=== PATIENT | male | born 1950 | race African-American/Black ===

== ENCOUNTER 2024-01-07 12:13 | Inpatient (IN) | payer MEDICARE, OTHER ==
[~2024-01-07] VITALS: Ht 188 cm; Wt 67.1 kg
[2024-01-07] MEDS ORDERED: NETA2.5D3 EACHEYE (12:47)
[2024-01-07] MEDS ORDERED: HALO5TAB PO (12:47)
[2024-01-07] MEDS ORDERED: ACET325C7 PO (12:47)
[2024-01-07] MEDS ORDERED: MELO-105 PO (12:47)
[2024-01-07] MEDS ORDERED: LISI20TA30 PO (12:47)
[2024-01-07] MEDS ORDERED: ASPI81TA31 PO (12:47)
[2024-01-07] MEDS ORDERED: MAGN400O6 PO (12:47)
[2024-01-07] MEDS ORDERED: TEMA7.5C PO (12:47)
[2024-01-07] MEDS ORDERED: BENZ1TAB7 PO (12:47)
[2024-01-07] MEDS ORDERED: DORZ10DR13 EACHEYE (12:47)
[2024-01-07] MEDS ORDERED: MEMA10TA PO (12:47)
[2024-01-07] MEDS ORDERED: HYDR-4075 PO (12:47)
[2024-01-07] MEDS ORDERED: DOCU100C36 PO (12:47)
[2024-01-07] MEDS ORDERED: MAG30ORA PO (12:47)
[2024-01-07] MEDS ORDERED: CYCL30DR EACHEYE (12:47)
[2024-01-07] MEDS ORDERED: AMLO10TA4 PO (12:47)
[2024-01-07] MEDS ORDERED: BISA10SU61 RC (12:47)
[2024-01-07] MEDS ORDERED: CRAN400C PO (12:47)
[2024-01-07] MEDS ORDERED: NA P133E RC (12:47)
[2024-01-07 12:49] LABS: *BILIRUBIN,URIN NEGATIVE (NEGATIVE); *BLOOD, URINE NEGATIVE (NEGATIVE); *CLARITY,URINE CLEAR (CLEAR); *COLOR,URINE YELLOW (YELLOW); *KETONES,URINE NEGATIVE (NEGATIVE); *PROTEIN,URINE NEGATIVE (NEGATIVE); *UROBILINOGEN,URINE 0.2 E.U./dl (NORMAL); LEUKOCYTE ESTERASE ,URINE NEGATIVE (NEGATIVE); NITRITE, URINE NEGATIVE (NEGATIVE); UGLUCOSE NEGATIVE (NEGATIVE)
[2024-01-07 12:55] LABS: BASOPHILS % (AUTO) 0.6 % (0.0-2.0); EOSINOPHILS # (AUTO) 0.3 K/uL (0.0-0.7); EOSINOPHILS % (AUTO) 4.4 % (0.0-7.0); HEMATOCRIT 42.4 % (36.7-47.1); HEMOGLOBIN 13.6 g/dL (12.5-16.3); LYMPHOCYTES # (AUTO) 1.2 K/uL (0.8-4.8); LYMPHOCYTES % (AUTO) 19.6 % (20.5-51.5); MEAN CORPUSCULAR HGB CONC 32 g/dL (32.5-36.3); MEAN CORPUSCULAR VOLUME 84.3 fL (73.0-96.2); MONOCYTES # (AUTO) 0.2 K/uL (0.1-1.30); MONOCYTES % (AUTO) 3.1 % (0.0-11.0); NEUTROPHILS # (AUTO) 4.5 K/uL (1.8-8.9); NEUTROPHILS % (AUTO) 72.3 % (38.5-71.5); PLATELET COUNT (AUTO) 216 K/uL (152-348); RED BLOOD CELL COUNT(AUTO) 5.03 MIL/uL (4.06-5.63); RED CELL DISTRIBUTION WIDTH 14.7 % (12.1-16.2); WHITE BLOOD COUNT (AUTO) 6.3 K/uL (3.6-10.2)
[2024-01-07 12:56] LABS: *AMPHETAMINE, URINE NEGATIVE (NEGATIVE); *BARBITURATE, URINE NEGATIVE (NEGATIVE); *BENZODIAZEPINE, URINE NEGATIVE (NEGATIVE); *CANNABINOID, URINE NEGATIVE (NEGATIVE); *COCCAINE, URINE NEGATIVE (NEGATIVE); *OPIATE, URINE NEGATIVE (NEGATIVE); *PHENCYCLIDINE SCREEN,URINE NEGATIVE (NEGATIVE); FENTANYL, URINE NEGATIVE (NEGATIVE)
[2024-01-07 13:15] LABS: DIFFERENTIAL COMMENT 1
[2024-01-07 13:16] LABS: ETHANOL < 3 MG/DL (0-10)
[2024-01-07 13:19] LABS: CALCIUM 9.4 mg/dL (8.5-10.1); CARBON DIOXIDE 31 mmol/L (21-32); CHLORIDE 106 mmol/L (98-107); CREATININE 1.1 mg/dL (0.6-1.3); GLUCOSE 102 mg/dL (74-106); POTASSIUM 4.2 mmol/L (3.5-5.1); SODIUM SERUM 143 mmol/L (136-145); UREA NITROGEN, BLOOD 20 mg/dL (7-18)
[2024-01-07 13:31] LABS: ACETAMINOPHEN 4.2 ug/mL (10-30); ALANINE AMINOTRANSFERASE 18 U/L (16-63); ALBUMIN 3.6 g/dL (3.4-5.0); ASPARTATE AMINOTRANSFERASE 10 U/L (15-37); BILIRUBIN,DIRECT 0.1 mg/dL (0.0-0.2); BILIRUBIN,TOTAL 0.4 mg/dL (0.2-1.0); TOTAL PROTEIN, SERUM 7.1 g/dL (6.4-8.2)
[2024-01-07 13:51] LABS: ALKALINE PHOSPHATASE 62 U/L (50-136)
[2024-01-07] MEDS: OLANZAPINE 5 MG TABLET PO ONE (18:23)
[2024-01-07] MEDS ORDERED: OLANZAPINE 5 MG TABLET ONE (18:24)
[2024-01-07 19:53] VITALS: BP 142/53; TEMP 98.1; O2SAT 95
[2024-01-07] MEDS: BLOOD SUGAR DIAGNOSTIC 1 EACH STRIP VI ONE (20:00)
[2024-01-07] MEDS ORDERED: MAG HYDROX/AL HYDROX/SIMETH 30 ML LIQUID UDC PO PRN (20:00)
[2024-01-07] MEDS ORDERED: LORAZEPAM 0.5 MG TABLET PO PRN (20:00)
[2024-01-07] MEDS ORDERED: MAGNESIUM HYDROXIDE 30 ML LIQUID UDC PO PRN (20:00)
[2024-01-07] MEDS: TEMAZEPAM 7.5 MG CAPSULE PO PRN (21:51)
[2024-01-07] MEDS: ACETAMINOPHEN 325 MG TABLET PO PRN (21:51)
[2024-01-08 08:25] VITALS: BP 150/86; TEMP 98.2; O2SAT 98
[2024-01-08] MEDS ORDERED: Medication Not On Formulary EA (Acetaminophen (Tylenol) 650 MG) PO PRN (11:00)
[2024-01-08] MEDS ORDERED: MAG HYDROX/AL HYDROX/SIMETH 30 ML LIQUID UDC PO PRN (11:00)
[2024-01-08] MEDS ORDERED: MAGNESIUM HYDROXIDE 30 ML LIQUID UDC PO PRN (11:00)
[2024-01-08] MEDS ORDERED: BISACODYL 10 MG SUPP.RECT RC PRN (11:00)
[2024-01-08] MEDS: HALOPERIDOL 5 MG TABLET PO SCH (12:40)
[2024-01-08] MEDS ORDERED: HALOPERIDOL 1 MG TABLET PO SCH (13:00)
[2024-01-08 15:19] VITALS: BP 122/75; TEMP 98.4; O2SAT 96
[2024-01-08] MEDS: BENZTROPINE MESYLATE 1 MG TABLET PO SCH (16:51)
[2024-01-08] MEDS: DORZOLAMIDE/TIMOLOL OPHT DROP 10 ML BOTTLE EACHEYE SCH (16:52)
[2024-01-08] MEDS ORDERED: CRANBERRY PO SCH (17:00)
[2024-01-08] MEDS: DOCUSATE SODIUM 100 MG CAPSULE PO SCH (17:01)
[2024-01-08 20:00] VITALS: BP 120/70; TEMP 98.3; O2SAT 99
[2024-01-08] MEDS: OLANZAPINE 5 MG TABLET PO SCH (20:17)
[2024-01-08] MEDS: TEMAZEPAM 7.5 MG CAPSULE PO PRN (20:17)
[2024-01-09 08:17] VITALS: BP 148/89; TEMP 98; O2SAT 96
[2024-01-09] MEDS: LISINOPRIL 20 MG TABLET PO SCH (09:00)
[2024-01-09] MEDS: ASPIRIN 81 MG TAB.CHEW PO SCH (09:00)
[2024-01-09] MEDS: MELOXICAM 7.5 MG TABLET PO SCH (09:17)
[2024-01-09] MEDS: AMLODIPINE 10 MG TABLET PO SCH (09:17)
[2024-01-09] MEDS: LORAZEPAM 0.5 MG TABLET PO PRN (11:45)
[2024-01-09 15:35] VITALS: BP 130/79; TEMP 98; O2SAT 98
[2024-01-09 20:00] VITALS: BP 126/88; TEMP 98; O2SAT 98
[2024-01-10 08:10] VITALS: BP 136/71; TEMP 98; O2SAT 96
[2024-01-10 15:07] VITALS: BP 128/62; TEMP 98; O2SAT 96
[2024-01-10 20:00] VITALS: BP 105/54; TEMP 98; O2SAT 96
[2024-01-10] MEDS: OLANZAPINE 5 MG TABLET PO SCH (20:20)
[2024-01-11 07:53] VITALS: BP 131/69; TEMP 97.4; O2SAT 96
[2024-01-11 16:31] VITALS: BP 141/89; TEMP 97.9; O2SAT 97
[2024-01-11 20:00] VITALS: BP 139/65; TEMP 97.9; O2SAT 95
[2024-01-12 08:33] VITALS: BP 138/79; TEMP 98.2; O2SAT 97
[2024-01-12 16:28] VITALS: BP 124/53; TEMP 98.1; O2SAT 97
[2024-01-12 21:38] VITALS: BP 95/59; TEMP 98; O2SAT 98
[2024-01-13 08:38] VITALS: BP 121/64; TEMP 98.4; O2SAT 97
[2024-01-13 16:18] VITALS: BP 124/66; TEMP 98.3; O2SAT 97
[2024-01-13 19:49] VITALS: BP 126/60; TEMP 98.2; O2SAT 96
[2024-01-14 08:19] VITALS: BP 118/61; TEMP 98.2; O2SAT 96
[2024-01-14 14:24] VITALS: BP 104/57; TEMP 98; O2SAT 96
[2024-01-14 19:48] VITALS: BP 111/58; TEMP 97.8; O2SAT 95
[2024-01-15] MEDS: ENSURE ENLIVE (VAN) 240 ML LIQUID PO SCH (08:00)
[2024-01-15 08:05] VITALS: BP_SYST 138; BP_SYST 158; BP_DIAS 91; TEMP 98; O2SAT 96
[2024-01-15 16:41] VITALS: BP 104/56; TEMP 98; O2SAT 100
[2024-01-15 19:43] VITALS: BP 126/66; TEMP 98.1; O2SAT 98
[2024-01-16 07:15] LABS: BASOPHILS # (AUTO) 0.1 K/UL (0.0-0.2); BASOPHILS % (AUTO) 1.7 % (0.0-2.0); EOSINOPHILS # (AUTO) 0.4 K/uL (0.0-0.7); EOSINOPHILS % (AUTO) 7.6 % (0.0-7.0); HEMATOCRIT 41.3 % (36.7-47.1); HEMOGLOBIN 13.6 g/dL (12.5-16.3); LYMPHOCYTES % (AUTO) 36.9 % (20.5-51.5); MEAN CORPUSCULAR HEMOGLOBIN 27.6 uug (23.8-33.4); MEAN CORPUSCULAR HGB CONC 33 g/dL (32.5-36.3); MEAN CORPUSCULAR VOLUME 83.7 fL (73.0-96.2); MONOCYTES # (AUTO) 0.4 K/uL (0.1-1.30); MONOCYTES % (AUTO) 7.7 % (0.0-11.0); NEUTROPHILS # (AUTO) 2.5 K/uL (1.8-8.9); NEUTROPHILS % (AUTO) 46.1 % (38.5-71.5); PLATELET COUNT (AUTO) 188 K/uL (152-348); RED BLOOD CELL COUNT(AUTO) 4.93 MIL/uL (4.06-5.63); RED CELL DISTRIBUTION WIDTH 14.4 % (12.1-16.2); WHITE BLOOD COUNT (AUTO) 5.5 K/uL (3.6-10.2)
[2024-01-16 07:25] LABS: DIFFERENTIAL COMMENT 1
[2024-01-16 08:38] LABS: CALCIUM 9.4 mg/dL (8.5-10.1); CARBON DIOXIDE 31 mmol/L (21-32); CHLORIDE 107 mmol/L (98-107); CREATININE 1.2 mg/dL (0.6-1.3); GLUCOSE 86 mg/dL (74-106); POTASSIUM 4.2 mmol/L (3.5-5.1); SODIUM SERUM 141 mmol/L (136-145); UREA NITROGEN, BLOOD 23 mg/dL (7-18)
[2024-01-16 08:54] VITALS: BP 104/56; TEMP 98; O2SAT 98
[2024-01-16 09:01] VITALS: BP 169/81; TEMP 98; O2SAT 98
[2024-01-16 15:17] VITALS: BP 103/64; TEMP 98.2; O2SAT 98
[2024-01-16 20:00] VITALS: BP 114/64; TEMP 98.3; O2SAT 96
[2024-01-17 08:28] VITALS: BP 128/68; TEMP 98; O2SAT 98
[2024-01-17 15:12] VITALS: BP 104/65; TEMP 98; O2SAT 98
[2024-01-17 20:00] VITALS: BP 133/65; TEMP 97.7; O2SAT 96
[2024-01-18 08:26] VITALS: BP 125/75; TEMP 98; O2SAT 97
[2024-01-18 16:19] VITALS: BP 130/79; TEMP 98.1; O2SAT 97
[2024-01-18 20:25] VITALS: BP 164/80; TEMP 98; O2SAT 98
[2024-01-19 09:04] VITALS: BP 120/58; TEMP 98.3; O2SAT 97
[2024-01-19 16:36] VITALS: BP 96/56; TEMP 98; O2SAT 97
[2024-01-19 20:13] VITALS: BP 100/67; TEMP 98.1; O2SAT 96
[2024-01-20 08:40] VITALS: BP 128/67; TEMP 98.5; O2SAT 97
[2024-01-20 16:33] VITALS: BP 118/58; TEMP 98.3; O2SAT 96
[2024-01-20 20:21] VITALS: BP 120/56; TEMP 98.4; O2SAT 96
[2024-01-20] MEDS: OLANZAPINE 5 MG TABLET PO SCH (20:33)
[2024-01-21 07:39] VITALS: BP 136/63; TEMP 98.2; O2SAT 98
[2024-01-21 15:45] VITALS: BP 114/78; TEMP 98; O2SAT 100
[2024-01-21 20:18] VITALS: BP 116/74; TEMP 98.1; O2SAT 98
[2024-01-22 08:32] VITALS: BP 129/71; TEMP 98; O2SAT 98
[2024-01-22 15:35] VITALS: BP 116/69; TEMP 98; O2SAT 98
[2024-01-22 20:00] VITALS: BP 126/64; TEMP 98; O2SAT 96
[2024-01-23 08:51] VITALS: BP 120/66; TEMP 98; O2SAT 96
[2024-01-23 15:56] VITALS: BP 156/84; TEMP 98; O2SAT 98
[2024-01-23 20:00] VITALS: BP 121/45; TEMP 97.9; O2SAT 98
[2024-01-24 07:53] VITALS: BP 116/74; TEMP 98; O2SAT 99
[2024-01-24 08:37] VITALS: BP 116/74
[2024-01-24] MEDS: OLANZAPINE 2.5 MG TABLET PO SCH (13:30)
[2024-01-24] MEDS ORDERED: OLANZAPINE 5 MG TABLET PO SCH (21:00)
== END 2024-01-24 16:01 | DRG 885 ==
LOC: ER 12:13 → GPS 18:38
PROVIDERS: ADMIT Psychiatry & Neurology Psychosomatic Medicine; ATTEND Nurse Practitioner Acute Care
DX: F25.9 Schizoaffective disorder, unspecified (principal); N18.9 Chronic kidney disease, unspecified; E44.1 Mild protein-calorie malnutrition; Z68.1 Body mass index [BMI] 19.9 or less, adult; F03.93 Unspecified dementia, unspecified severity, with mood disturbance; F03.92 Unspecified dementia, unspecified severity, with psychotic disturbance; F39 Unspecified mood [affective] disorder; I12.9 Hypertensive chronic kidney disease with stage 1 through stage 4 chronic kidney disease, or unspecified chronic kidney disease; F22 Delusional disorders; E11.22 Type 2 diabetes mellitus with diabetic chronic kidney disease; H54.7 Unspecified visual loss; Z79.82 Long term (current) use of aspirin; M15.9 Polyosteoarthritis, unspecified
CPT/HCPCS: 36415; 85025; 93005; G0480